=== PATIENT | male | born 1950 | race Caucasian/White ===

== ENCOUNTER → 2020-10-03 | Outpatient (CLI) | payer MEDICARE, OTHER ==
[~2020-10-03] MED LIST: ASPI81CH PO; ATOR80 PO; COLCHICINE0.6 MG PO; DAILY VALUE1 EACH PO; ELIQUIS5 MG PO; LORA10 PO; Metoprolol Succ25 MG PO; NAPR500 PO; Norco 5-325 Ta1 EACH PO; ZOLP10 PO
== END ==
LOC: LAB 16:51 → LAB SHORT 16:51
DX: N39.0 Urinary tract infection, site not specified (principal)
CPT/HCPCS: 87086

== ENCOUNTER → 2020-10-11 | Outpatient (CLI) | payer MEDICARE, OTHER ==
[2020-10-11 08:48] LABS: Source, Urine Clean Catch
[2020-10-11 09:11] LABS: Amorphous Light (0-Heavy); Bacteria Few /hpf; Mucus Light (0-Heavy); Squamous Epithelial Cells Rare /hpf (Few); White Blood Cells, Urine 0-2 /hpf (0-5)
[2020-10-11 09:55] LABS: PSA, %Free 29.4 %; PSA, Free 0.863 ng/mL
== END | disposition home or self-care (01) ==
LOC: LAB 08:42 → LAB SHORT 08:42
PROVIDERS: Physician Assistant
DX: N40.0 Benign prostatic hyperplasia without lower urinary tract symptoms (principal); R31.9 Hematuria, unspecified
CPT/HCPCS: 81015; 84153; 84154

== ENCOUNTER 2022-01-19 10:34 | Day surgery (SDC) | payer MEDICARE, OTHER ==
[~2022-01-19] VITALS: Ht 190.5 cm; Wt 98.2 kg
[2022-01-19] MEDS ORDERED: TADA10TA (11:24)
[2022-01-19] MEDS ORDERED: ELIQUIS5 M2 PO (11:26)
--- NOTE | 2022-01-19 11:34 | NUR ---
01/19/22 1134 Dahiana Berry AT 1122 PLEDGET AT 1123
== END 2022-01-19 12:55 | disposition home or self-care (01) ==
LOC: ORSCSDS 10:34
PROVIDERS: Ophthalmology
PROC: 08RK3JZ Replacement of Left Lens with Synthetic Substitute, Percutaneous Approach (ICD-10-PCS; principal; 2022-01-19 14:00)
DX: H25.13 Age-related nuclear cataract, bilateral (principal); I10 Essential (primary) hypertension; Z79.01 Long term (current) use of anticoagulants; Z87.891 Personal history of nicotine dependence; Z79.899 Other long term (current) drug therapy
CPT/HCPCS: J2001; J2250; J3010; J3301; J7040; V2632

== ENCOUNTER 2022-02-02 11:15 | Day surgery (SDC) | payer MEDICARE, OTHER ==
[~2022-02-02] VITALS: Ht 190.5 cm; Wt 98.1 kg
[~2022-02-02 11:15] MED LIST changes: +AMLO5 PO; +ELIQUIS5 M2 PO; +LATA.005SO BOTHEYES; +Prozac20 MG PO; +REVATIO PO; +TADA10TA; +TRAZ50 PO
--- NOTE | 2022-02-02 11:51 | NUR ---
02/02/22 1151 NIGEL MARSH TETRACAINE DROP PLACED AT 1136 IN RIGHT OPERATIVE EYE. PLEDGETTE PLACED IN RIGHT EYE AT 1141.
== END 2022-02-02 13:20 | disposition home or self-care (01) ==
LOC: ORSCSDS 11:15
PROVIDERS: Ophthalmology
PROC: 08RJ3JZ Replacement of Right Lens with Synthetic Substitute, Percutaneous Approach (ICD-10-PCS; principal; 2022-02-02 13:00)
DX: H25.11 Age-related nuclear cataract, right eye (principal); I10 Essential (primary) hypertension; I25.10 Atherosclerotic heart disease of native coronary artery without angina pectoris; I48.91 Unspecified atrial fibrillation; E78.00 Pure hypercholesterolemia, unspecified; H40.9 Unspecified glaucoma; Z87.891 Personal history of nicotine dependence; Z79.01 Long term (current) use of anticoagulants; Z79.899 Other long term (current) drug therapy
CPT/HCPCS: J2001; J2250; J3010; J3301; J7040; V2632

== ENCOUNTER 2024-03-10 17:16 | Emergency (ER) | payer MEDICARE, OTHER ==
[~2024-03-10] VITALS: Ht 190.5 cm; Wt 102.1 kg
[~2024-03-10 17:16] MED LIST changes: +Aspir 8181 MG PO; +CO Q 10 PO; +OMEP20ER PO
[2024-03-10 19:37] VITALS: BP 106/81
== END 2024-03-10 20:25 | disposition home or self-care (01) ==
LOC: ER 17:16
DX: M79.652 Pain in left thigh (principal); I25.2 Old myocardial infarction; Z87.891 Personal history of nicotine dependence; Z95.5 Presence of coronary angioplasty implant and graft
CPT/HCPCS: 73552; 99283-25